=== PATIENT | female | born 1975 | race Caucasian/White ===

== ENCOUNTER 2021-12-15 05:32 | Day surgery (SDC) | payer MEDICARE ==
[2021-12-15] MEDS ORDERED: Lactated Ringers 1,000 ML IV SCH ×2 (06:27→07:00)
[2021-12-15] MEDS ORDERED: Midazolam 1 MG/ML 2 ML SDV ONE (07:06)
[2021-12-15] MEDS ORDERED: Propofol 200 MG/20 ML SDV ONE (07:06)
[2021-12-15] MEDS ORDERED: fentaNYL 100 MCG/2 ML SDV ONE (07:06)
== END 2021-12-15 08:57 | disposition home or self-care (01) ==
LOC: JP.SDS 05:32
PROVIDERS: ATTEND Student in an Organized Health Care Education/Training Program
DX: Z12.11 Encounter for screening for malignant neoplasm of colon (principal); F17.210 Nicotine dependence, cigarettes, uncomplicated
CPT/HCPCS: J2250; J2704; J3010; J7120

== ENCOUNTER 2022-01-16 11:07 | Emergency (ER) | payer MEDICARE ==
[2022-01-16 12:16] LABS: CORONAVIRUS COVID-19 NAA NEGATIVE (NEGATIVE)
== END 2022-01-16 12:28 | disposition home or self-care (01) ==
LOC: JP.ED 11:07
DX: J10.1 Influenza due to other identified influenza virus with other respiratory manifestations (principal); F17.210 Nicotine dependence, cigarettes, uncomplicated; Z20.822 Contact with and (suspected) exposure to COVID-19
CPT/HCPCS: 0241U; 99283

== ENCOUNTER 2022-07-25 12:57 | Emergency (ER) | payer MEDICARE | END 2022-07-25 14:34 | disposition home or self-care (01) | LOC: JP.ED 12:57 | DX: S39.011A Strain of muscle, fascia and tendon of abdomen, initial encounter (principal); J45.909 Unspecified asthma, uncomplicated; Z72.0 Tobacco use; X50.1XXA Overexertion from prolonged static or awkward postures, initial encounter | CPT/HCPCS: 99283 ==